=== PATIENT | female | born 1995 | race Caucasian/White ===

== ENCOUNTER 2020-01-11 09:22 | Emergency (ER) | payer OTHER ==
[~2020-01-11] VITALS: Ht 160 cm; Wt 92.5 kg
[2020-01-11 09:34] VITALS: Ht 160 cm; Wt 92.5 kg
[2020-01-11 10:44] LABS: BASOPHIL % 0.3 % (0-2); PLATELET COUNT 275 x10^3mcL (130-400)
[2020-01-11 10:55] LABS: CARBON DIOXIDE 26.2 mmol/L (21-32); CHLORIDE SERUM 103 mmol/L (98-107); CREATININE SERUM 0.6 mg/dL (0.6-1.0); GFR1 > 60 mL/min; GLUCOSE SERUM 83 mg/dL (74-106); POTASSIUM SERUM 3.9 mmol/L (3.5-5.1); SODIUM SERUM 137 mmol/L (136-145)
[2020-01-11 11:00] LABS: ALKALINE PHOSPHATASE 62 U/L (46-116); ALT/SGPT 16 U/L (14-59); AST/SGOT 16 U/L (15-37); BILIRUBIN TOTAL 0.3 mg/dL (0.20-1.00); TOTAL PROTEIN, SERUM 6.7 g/dL (6.4-8.2)
[2020-01-11 11:01] LABS: ALBUMIN 3.3 g/dL (3.4-5.0)
[2020-01-11 12:50] VITALS: BP 113/68
== END 2020-01-11 12:50 | disposition home or self-care (01) ==
LOC: ED 09:22
PROVIDERS: Emergency Medicine
DX: O21.9 Vomiting of pregnancy, unspecified (principal); O26.891 Other specified pregnancy related conditions, first trimester; R42 Dizziness and giddiness; Z3A.14 14 weeks gestation of pregnancy
CPT/HCPCS: J2765; J7030

== ENCOUNTER 2020-02-08 09:37 | Emergency (ER) | payer OTHER ==
[~2020-02-08] VITALS: Ht 157.5 cm; Wt 93.0 kg
[2020-02-08 09:55] VITALS: Ht 157.5 cm; Wt 93.0 kg
[2020-02-08 10:55] LABS: CALCIUM 9.1 mg/dL (8.5-10.1); CARBON DIOXIDE 25.8 mmol/L (21-32); CHLORIDE SERUM 102 mmol/L (98-107); CREATININE SERUM 0.6 mg/dL (0.6-1.0); GFR1 > 60 mL/min; GLUCOSE SERUM 104 mg/dL (74-106); POTASSIUM SERUM 3.8 mmol/L (3.5-5.1); SODIUM SERUM 134 mmol/L (136-145)
[2020-02-08 11:00] LABS: microscopic required? NO
[2020-02-08 11:04] LABS: BASOPHIL % 0.4 % (0-2); PLATELET COUNT 314 x10^3mcL (130-400); RED CELL DISTRIBUTION WIDTH 11.9 % (11.5-14.5)
[2020-02-08 11:04] LABS: urine erythrocyte NEGATIVE (NEGATIVE)
[2020-02-08 12:08] VITALS: BP 111/65
== END 2020-02-08 12:09 | disposition home or self-care (01) ==
LOC: ED 09:37
PROVIDERS: Emergency Medicine
DX: R07.89 Other chest pain (principal); O26.892 Other specified pregnancy related conditions, second trimester; Z3A.18 18 weeks gestation of pregnancy
CPT/HCPCS: 36600